=== PATIENT | male | born 1975 | race Caucasian/White ===

== ENCOUNTER 2017-03-06 16:50 | Emergency (ER) | payer BC ==
[~2017-03-06] VITALS: Ht 182.9 cm; Wt 148.3 kg
[~2017-03-06 16:50] MED LIST: MOBIC7.5 MG PO; ULTRAM50 MG PO
[2017-03-06 18:01] LABS: HEMATOCRIT 43.6 % (38.0-50.0); MCH 29.7 PG (29.0-34.0); MCHC 34.4 G/DL (30.0-36.0); MCV 86.3 FL (86-99); PLATELET COUNT 199 K/uL (156-360); RBC DIS.WIDTH-CV 11.7 % (11.8-14.6); RBC DIS.WIDTH-SD 36.5 % (39-53); RED BLOOD COUNT 5.05 M/uL (4.00-5.50); WHITE BLOOD COUNT 5.5 K/uL (4.1-10.2)
[2017-03-06 18:15] LABS: CHLORIDE 107 mEq/L (99-109); SODIUM 139 mEq/L (136-147)
[2017-03-06 18:16] LABS: GLUCOSE 140 mg/dL (70-99)
[2017-03-06 18:20] LABS: CREATININE 0.9 mg/dL (0.6-1.3); GFR ESTIMATE (CALCULATED) > 59 mL/min/ (58.99-99999)
[2017-03-06 18:21] LABS: UREA NITROGEN (BUN) 16 mg/dL (9-23)
[2017-03-06 18:24] LABS: TROP-I INTERPRETATION NEGATIVE; TROPONIN-I < 0.01 ng/mL (0.0-0.30)
[2017-03-06 21:15] LABS: TROP-I INTERPRETATION NEGATIVE; TROPONIN-I < 0.01 ng/mL (0.0-0.30)
[2017-03-06 22:11] VITALS: BP 151/82
== END 2017-03-06 22:11 | disposition home or self-care (01) ==
LOC: EME 16:50
PROVIDERS: Nurse Practitioner Family
DX: J06.9 Acute upper respiratory infection, unspecified (principal); R07.2 Precordial pain; I11.9 Hypertensive heart disease without heart failure
CPT/HCPCS: 71046; 80048; 84484; 85027; 93005; 99281; 99284

== ENCOUNTER 2017-10-17 07:56 | Emergency (ER) | payer BC ==
[~2017-10-17] VITALS: Ht 182.9 cm; Wt 153.0 kg
[2017-10-17] MEDS ORDERED: MOTRIN800 MG PO (09:43)
[2017-10-17 10:25] VITALS: BP 180/102
== END 2017-10-17 10:25 | disposition home or self-care (01) ==
LOC: EME 07:56
DX: M25.562 Pain in left knee (principal); M79.89 Other specified soft tissue disorders; I10 Essential (primary) hypertension
CPT/HCPCS: 73564; 99281; 99284; J1885